=== PATIENT | female | born 1950 | race Caucasian/White ===

== ENCOUNTER 2018-01-26 07:04 | Day surgery (SDC) | payer MEDICARE, OTHER, SELFPAY ==
--- NOTE | 2018-01-26 | PATH_ITS ---
[facility] Accession Number: [id number] . 01 Material submitted: . PART A: CECAL POLYP PART B: RIGHT COLON POLYP AT 65 CM . 02 Diagnosis: A. Cecal Polyp: Tubular adenoma. . B. Right Colon Polyp at 65 cm: Tubular adenoma. MRV/01/27/2018 . 02 Electronically signed: . King Colindres MD, PhD, Pathologist NPI- [id number] . 01 Gross description: . Received two formalin-filled containers both labeled with the patient's name. . A. In a container labeled cecal polyp, the specimen consists of a 0.3 cm portion of tissue. Entirely submitted in cassette A. B. In a container labeled RT colon polyp at 65 cm, the specimen consists of a 0.3 cm portion of tissue. Entirely submitted in cassette B. ([facility] [place]:[id number]) /[facility] . 02 Pathologist provided ICD-10: D12.0, D12.6 . 02 CPT . 643502, 697054 Performed at: 01 [facility] [address] [id number] MD Kenyon Gaytan MD Phone: [phone] Performed at: 02 [facility] [address] [place], [place] [id number] MD Israel Orlando MD Phone: [phone]
[2018-01-26 07:18] VITALS: BMI 28.3
[2018-01-26 07:24] VITALS: BP 138/85; PULSE 66; RESP 20; TEMP 36; O2SAT 100
[2018-01-26] MEDS: SODIUM CHLORIDE 0.9% 1,000 ML 200 ML IV (07:47)
--- NOTE | 2018-01-26 07:59 | PM.PREOP ---
Pre-operative Note Interval Note Pre-op Check: Yes History & Physical Reviewed by Physician, Yes Exam Performed and Yes History & Physical exam performed today by Physician Changes: No H&P completed within 30 days and has changed as indicated here:: Patient seen and examined today. History physical examination placed on the chart. We will proceed with colonoscopy today as planned. ASA Class (for procedural sedation): II
--- NOTE | 2018-01-26 08:00 | P.HP_ITS ---
History of Present Illness Date Patient Seen: 01/26/18 Time Patient Seen: 07:54 Chief complaint: [id number] Narrative: 67-year-old female with personal history of colon polyps and breast cancer who presents now for colorectal screening. Her last examination was 5 years ago. Polyps were reportedly benign at that time. Currently the patient has had no other gastrointestinal symptoms. She denies any nausea, vomiting, loss of appetite, unexplained weight loss, abdominal pain, change in bowel habits, diarrhea, constipation, melena, hematochezia, or bright red blood per rectum. Patient History Medical History Breast cancer in female (Acute) Colon polyps (Acute) Heart murmur (Acute) History of chemotherapy (Acute) Surgical History History of colonoscopy (Acute) History of oophorectomy (Acute) History of removal of Port-a-Cath (Acute) Status post breast lumpectomy (Acute) Family & Social History Family History: Reviewed 01/26/18 by Domingo Polanco MD Social History: household members spouse Meds Home Medications Medication Instructions Recorded Confirmed Type Ocuvite 1 cap PO DAILY 01/26/18 01/26/18 History calcium carb-vit D3-magnesium 1 tab PO DAILY 01/26/18 01/26/18 History Allergies Allergy/AdvReac Type Severity Reaction Status Date / Time amoxicillin Allergy Rash Verified 01/26/18 07:35 ampicillin Allergy Rash Verified 01/26/18 07:35 peanut Allergy Rash Verified 01/26/18 07:36 Review of Systems Review of Systems All systems reviewed & are unremarkable except as noted in HPI and below Exam Vital Signs (past 8 hours): - 01/26/18 07:24 Temperature 96.8 F L Pulse Rate 66 Respiratory Rate 20 Blood Pressure 138/85 H Pulse Oximetry 100 Oxygen Delivery Method Room Air Narrative Exam Narrative: Well-nourished well-developed female in no acute distress. Alert oriented x3 Sclera nonicteric Chest clear to auscultation with a grade 2 systolic ejection murmur. No crackles or wheezes Abdomen soft, nondistended, nontender, no masses Extremities show no clubbing, cyanosis, or edema Objective Labs Labs: No recent laboratory or radiographic studies for review Assessment & Plan Plan: Assessment/Plan Narrative: 67-year-old female with personal history of colon polyps now requiring colorectal surveillance since it has been 5 years from her previous colonoscopy. Colonoscopy is once again recommended. Technical details of procedure were discussed. Risks, benefits, alternatives were explained. Risks including but not limited to sedation, aspiration, bleeding, pain, missed lesion , incomplete examination, need for further radiographic studies, colonic perforation, need for major abdominal surgery, and all attendant risks of major surgery were explained in detail. All questions were answered to her satisfaction, and consent was placed on the chart. She voiced understanding. We will proceed as above.
[2018-01-26] MEDS: MIDAZOLAM 5 MG/5 ML VIAL IV (08:17)
[2018-01-26] MEDS: fentaNYL 250 MCG/5 ML INJ IV (08:22)
--- NOTE | 2018-01-26 08:23 | PM.OP.ENDO ---
Operative Date/Time/Diagnoses Date of procedure: 01/26/18 Time of procedure: 08:23 Pre-op diagnosis: Personal history of colon polyps Post-op diagnosis: other (Colon polyps) Procedure & Clinicians Study performed: 1. Sedation per surgeon 2. Colonoscopy with cold forceps polypectomies Same procedure as scheduled: Yes Indications: 67-year-old female with personal history of colon polyps who presents for colorectal surveillance. It has been 5 years since her last examination. Colonoscopy is once again recommended. Surgeon: Domingo Polanco Procedure Notes SCOAP/Timeout: Yes Procedure in detail: After obtaining informed consent, the patient was brought to the GI suite and placed in the left lateral decubitus position on the examination table. After placement of appropriate monitors, the patient was given incremental doses of Versed and Fentanyl until an appropriate level of sedation was achieved. A time out was held per SCOAP protocol. A digital rectal examination was performed and did not reveal any masses or obstructing lesions. The colonoscope was gently passed into the patient's anus and the entire colon navigated to the level of the cecum with minimal difficulty. Once in the cecum, the scope was withdrawn being sure to go before and beyond all mucosal folds and prominences and get an excellent examination. The findings are noted above. At the level of the rectal vault, the scope was retroflexed and the internal anal canal was examined. The scope was straightened and air aspirated from the colon. The instrument was removed from the patient's body and the procedure was concluded. Of note, bowel preparation was suboptimal and several small segments of the left colon, and I could not achieve full circumferential visualization at these areas despite copious irrigation and suction. The patient was allowed to awaken from sedation without difficulty and taken to the post-anesthesia care unit in good condition. Scope withdrawal time: 11:29 min Sedation minutes: 25 Findings: diverticulosis (Scant in sigmoid colon) and polyp (1. Cecal polyp 2. Right colon polyp at 65 cm) Specimen(s): other (As above in findings) Complications: none Recommendations: Colonscopy in 5 years, High fiber diet and Will call with biopsy results Plan for aftercare: 1. Discharged home Follow up: as needed Disposition: PACU
[2018-01-26 08:28] VITALS: BP 138/69; PULSE 61; RESP 13; TEMP 36.6; O2SAT 99
[2018-01-26 08:32] VITALS: BP 144/84; PULSE 54; RESP 12
[2018-01-26 08:38] VITALS: BP 138/70; PULSE 61; RESP 16; TEMP 36.6; O2SAT 99
[2018-01-26 08:46] VITALS: BP 147/87; PULSE 56; RESP 15; TEMP 36.2; O2SAT 100
== END 2018-01-26 08:57 | disposition home or self-care (01) ==
PROVIDERS: Family Provider Internal Medicine; PCP Internal Medicine; Visit Provider Surgery
PROC: 0DJD8ZZ Inspection of Lower Intestinal Tract, Via Natural or Artificial Opening Endoscopic (ICD-10-PCS; CPT 45378; principal; 2018-01-26 07:45)
DX: Z86.010 Personal history of colon polyps (principal); R01.1 Cardiac murmur, unspecified; K57.30 Diverticulosis of large intestine without perforation or abscess without bleeding; D12.0 Benign neoplasm of cecum; D12.2 Benign neoplasm of ascending colon
CPT/HCPCS: 45380; 88305; 99152; 99153; J2250; J3010

== ENCOUNTER → 2020-08-24 18:32 | Outpatient (ROUT) | payer MEDICARE, OTHER, SELFPAY ==
[2020-08-24 18:59] LABS: BUN Creatinine Ratio 24.1 (6-22); Blood Urea Nitrogen 20 mg/dL (7-17); Calcium 9.4 mg/dL (8.4-10.2); Carbon Dioxide 29 mmol/L (22-32); Chloride 107 mmol/L (98-107); Cholesterol 238 mg/dL (140-199); Estimated Glomerular Filt Rate > 60.0 mL/min (>60); Glucose 100 mg/dL (80-110); HDL Cholesterol 57 mg/dL (40-60); HEMOLYSIS < 15 (0-50); LDL Cholesterol Calculated 162 mg/dL (<100); Potassium 4.6 mmol/L (3.4-5.1); Sodium 138 mmol/L (137-145); Triglycerides 95 mg/dL (35-150)
== END ==
PROVIDERS: Family Provider Internal Medicine; PCP Internal Medicine; Visit Provider Internal Medicine
DX: E78.2 Mixed hyperlipidemia (principal); R03.0 Elevated blood-pressure reading, without diagnosis of hypertension
CPT/HCPCS: 80048; 80061

== ENCOUNTER → 2020-10-03 10:23 | Outpatient (CLI) | payer MEDICARE, OTHER, SELFPAY | PROVIDERS: Family Provider Internal Medicine; PCP Internal Medicine; Referring Provider Internal Medicine; Visit Provider Internal Medicine | DX: M85.88 Other specified disorders of bone density and structure, other site (principal); M85.862 Other specified disorders of bone density and structure, left lower leg; M85.861 Other specified disorders of bone density and structure, right lower leg | CPT/HCPCS: 77080 ==

== ENCOUNTER → 2020-10-06 09:56 | Outpatient (CLI) | payer MEDICARE, OTHER, SELFPAY ==
--- NOTE | 2020-10-06 | DI.RAD.S_ITS ---
PROCEDURE: XR KNEE LT 1TO2V INDICATIONS: left knee pain TECHNIQUE: To view(s) of the knee acquired. COMPARISON: None. FINDINGS: Bones: Patient is status post knee joint arthroplasty. Hardware components are in expected positions. Visualized bony structures are intact. Mild medial patellofemoral compartment osteoarthritis. Soft tissues: Overlying postoperative changes are noted. IMPRESSION: Mild medial and patellofemoral compartment osteoarthritis. Dictated by: Ailin Funez MD, PhD on 10/06/2020 at 11:18 Approved by: Ailin Funez MD, PhD on 10/06/2020 at 11:18
== END ==
PROVIDERS: Family Provider Internal Medicine; PCP Internal Medicine; Referring Provider Physician Assistant; Visit Provider Physician Assistant
DX: M25.562 Pain in left knee (principal); M17.12 Unilateral primary osteoarthritis, left knee
CPT/HCPCS: 73560

== ENCOUNTER → 2020-11-09 19:21 | Outpatient (CLI) | payer MEDICARE, OTHER, SELFPAY ==
--- NOTE | 2020-11-09 | DI.MRI.S_ITS ---
PROCEDURE: MR KNEE LT WO CON INDICATIONS: pain in left knee TECHNIQUE: Noncontrast sagittal PD fast spin echo and T2 fast spin echo with fat saturation, sagittal 3-D FLASH with fat saturation; coronal T1 spin echo and PD fast spin echo with fat saturation, and axial PD fast spin echo with fat saturation through the knee. COMPARISON: None. FINDINGS: Menisci: Lateral meniscus appears intact. Medial meniscal hypertrophy and prominent intrasubstance T2 hyperintense signal change involving the body suggestive of myxoid degeneration. There is also marked truncation of the free margin of the posterior horn, and macerated appearance of the posterior root, in keeping with tear on image 12/8. Partial extrusion is noted. Cruciate ligaments: Anterior cruciate ligament appears intact. Posterior cruciate ligament appears intact. Medial structures: The medial collateral ligament appears intact. Semimembranosus tendon appears intact. Visualized portions of the pes anserinus tendons appear normal. No abnormal bursal fluid. Lateral structures: The lateral collateral ligament intact. Biceps femoris tendon appears intact. Popliteus tendon grossly unremarkable. Iliotibial band appears intact. Anterior structures: Quadriceps tendon intact. Age-indeterminate mild sprain of the lateral patellofemoral ligament. The medial patellofemoral ligament appears intact. There is mild patellar tendinopathy. Prepatellar and superficial infrapatellar subcutaneous edema/fluid. Bones and cartilage: Marrow: No focal marrow contusion or discrete low signal fracture line. Medial compartment: Diffuse partial-thickness loss and surface fraying of the femoral cartilage. The tibial cartilage appears grossly intact. Lateral compartment: Partial-thickness loss and fissuring of the central weight-bearing femoral and tibial cartilage. Patellofemoral compartment: Diffuse partial-thickness loss of the patellar cartilage. Partial-thickness loss of the medial femoral trochlear cartilage. Joint space: Small joint effusion. Bowen's cyst measuring 6 cm in the cephalocaudal dimension. No specific evidence of intra-articular loose body. IMPRESSION: Medial meniscal tear with partial extrusion, and superimposed myxoid degeneration as detailed above Small joint effusion Tricompartmental joint degeneration as above. Bowen's cyst Mild patellar tendinopathy Dictated by: Kade Kruse M.D. on 11/10/2020 at 10:10 Approved by: Kade Kruse M.D. on 11/10/2020 at 10:25
== END ==
PROVIDERS: Family Provider Internal Medicine; PCP Internal Medicine; Referring Provider Internal Medicine; Visit Provider Internal Medicine
DX: M25.562 Pain in left knee (principal); S83.242A Other tear of medial meniscus, current injury, left knee, initial encounter; M25.462 Effusion, left knee; M17.12 Unilateral primary osteoarthritis, left knee; M71.22 Synovial cyst of popliteal space [Baker], left knee
CPT/HCPCS: 73721

== ENCOUNTER 2023-09-03 12:47 | Day surgery (SDC) | payer MEDICARE, OTHER, SELFPAY ==
[2023-09-03 13:22] VITALS: BP 165/89; PULSE 68; RESP 14; TEMP 36.1; O2SAT 100
--- NOTE | 2023-09-03 13:33 | P.HP_ITS ---
History of Present Illness History of Present Illness Date Patient Seen: 09/03/23 Chief complaint: SDC Narrative: History of colon polyps [facility] Medical History Heart murmur History of chemotherapy Breast cancer in female Colon polyps Surgical History History of removal of Port-a-Cath History of oophorectomy Status post breast lumpectomy History of colonoscopy Social History household members: spouse Smoking Status: Never smoker Meds Home Medications and Allergies Home Medications Medication Instructions Recorded Confirmed Type Ocuvite 1 cap PO DAILY 01/26/18 01/26/18 History calcium carb-vit D3-magnesium 1 tab PO DAILY 01/26/18 01/26/18 History Allergies Allergy/AdvReac Type Severity Reaction Status Date / Time amoxicillin Allergy Rash Verified 09/29/22 17:35 ampicillin Allergy Rash Verified 09/29/22 17:35 peanut Allergy Rash Verified 09/29/22 17:35 Exam Narrative Exam Narrative: Oropharynx free of lesions Chest clear to auscultation percussion Cardiac exam reveals no S3 or murmur Assessment & Plan Assessment & Plan narrative: History of colon polyps need for follow-up colonoscopy. Risks, benefits, alternatives have been explained.
--- NOTE | 2023-09-03 13:34 | PM.OP.COLON ---
Operative Date/Time/Diagnoses Date of procedure: 09/03/23 Pre-op diagnosis: See indication Procedure & Clinicians Study performed: Colonoscopy Indications: History of polyps Surgeon: Len Alvarado Procedure Notes Procedure in detail: After informed consent was obtained the patient was placed in left lateral decubitus position. The video colonoscope was introduced the rectum slowly advanced to the cecum. Preparation was good. On withdrawal mucosa was carefully examined. The scope was removed. The patient tolerated procedure well. Blood loss none Complications none Sedation mac Findings 1. Normal colonoscopy to cecum At age 73 for Lucia does not need follow-up colonoscopy.
[2023-09-03 14:46] VITALS: BP 122/71; PULSE 63; RESP 12; TEMP 37.1; O2SAT 96
[2023-09-03 14:51] VITALS: BP 119/76; PULSE 59; RESP 16; O2SAT 98
[2023-09-03 14:56] VITALS: BP 141/76; PULSE 63; RESP 18; O2SAT 99
[2023-09-03 15:02] VITALS: BP 135/81; PULSE 56; RESP 14; TEMP 36.7; O2SAT 99
== END 2023-09-03 15:13 | disposition home or self-care (01) ==
PROVIDERS: Family Provider Internal Medicine; PCP Internal Medicine; Referring Provider Internal Medicine Gastroenterology; Visit Provider Internal Medicine Gastroenterology
PROC: 0DJD8ZZ Inspection of Lower Intestinal Tract, Via Natural or Artificial Opening Endoscopic (ICD-10-PCS; CPT 45378; principal; 2023-09-03 13:30)
DX: Z12.11 Encounter for screening for malignant neoplasm of colon (principal); Z86.010 Personal history of colon polyps
CPT/HCPCS: G0105; J2704